=== PATIENT | male | born 1975 | race Two or more races ===

== ENCOUNTER 2024-08-10 18:25 | Emergency (ER) | payer MEDICAID ==
[~2024-08-10] VITALS: Ht 177.8 cm; Wt 115.7 kg
[2024-08-10] MEDS ORDERED: NEOMY/BACITRA/POLYMYXIN B OINT UD PACKET TP ONE (19:02)
[2024-08-10] MEDS: AMOXICILLIN-CLAVUL 500-125MG TABLET PO ONE (19:02)
[2024-08-10] MEDS ORDERED: AMOX-427 PO (19:02)
[2024-08-10] MEDS: NEOMY/BACITRA/POLYMYXIN B OINT UD PACKET TP ONE (19:03)
[2024-08-10] MEDS: ACETAMINOPHEN 500 MG TABLET PO ONE (19:03)
[2024-08-10 19:40] VITALS: BP 115/64; O2SAT 99
== END 2024-08-10 19:30 | disposition home or self-care (01) ==
LOC: ER 18:25
DX: S81.852A Open bite, left lower leg, initial encounter (principal); I48.91 Unspecified atrial fibrillation; Z79.01 Long term (current) use of anticoagulants; W54.0XXA Bitten by dog, initial encounter; Y93.89 Activity, other specified; Y92.89 Other specified places as the place of occurrence of the external cause; Y99.8 Other external cause status
CPT/HCPCS: A4606; A4663; A9150

== ENCOUNTER 2024-08-14 15:22 | Emergency (ER) | payer MEDICAID ==
[~2024-08-14] VITALS: Ht 177.8 cm; Wt 115.7 kg
[~2024-08-14 15:22] MED LIST: AMOX-427 PO
[2024-08-14] MEDS ORDERED: FLAS1KIT2 TP (16:05)
[2024-08-14] MEDS ORDERED: ACET1TAB23 PO (16:05)
[2024-08-14] MEDS ORDERED: FLAS1EAC2 TP (16:05)
[2024-08-14 16:16] VITALS: BP 155/97; O2SAT 97
== END 2024-08-14 16:17 | disposition home or self-care (01) ==
LOC: ER 15:22
DX: S80.12XA Contusion of left lower leg, initial encounter (principal); E11.9 Type 2 diabetes mellitus without complications; I10 Essential (primary) hypertension; I48.91 Unspecified atrial fibrillation; W54.0XXA Bitten by dog, initial encounter; Y93.89 Activity, other specified; Y92.89 Other specified places as the place of occurrence of the external cause; Y99.8 Other external cause status
CPT/HCPCS: A4606; A4663

== ENCOUNTER 2025-01-22 15:47 | Emergency (ER) | payer MEDICAID ==
[~2025-01-22] VITALS: Ht 177.8 cm; Wt 117.9 kg
[~2025-01-22 15:47] MED LIST changes: +ACET1TAB23 PO; +FLAS1EAC2 TP; +FLAS1KIT2 TP
[2025-01-22 16:17] LABS: *BILIRUBIN,URIN NEGATIVE (NEGATIVE); *BLOOD, URINE NEGATIVE (NEGATIVE); *CLARITY,URINE CLEAR (CLEAR); *COLOR,URINE YELLOW (YELLOW); *KETONES,URINE TRACE (NEGATIVE); *PROTEIN,URINE NEGATIVE (NEGATIVE); *UROBILINOGEN,URINE 0.2 E.U./dl (NORMAL); LEUKOCYTE ESTERASE ,URINE NEGATIVE (NEGATIVE); NITRITE, URINE NEGATIVE (NEGATIVE); UGLUCOSE 3+ (NEGATIVE)
[2025-01-22 16:23] LABS: SQUAMOUS EPITHELIAL CELL,UR FEW /HPF (NONE SEEN)
[2025-01-22] MEDS ORDERED: HYDROMORPHONE 1 MG/1 ML DISP.SYRIN ONE (17:24)
[2025-01-22] MEDS ORDERED: ONDANSETRON 4 MG/2 ML VIAL ONE (17:24)
[2025-01-22] MEDS: IV NORMAL SALINE 1000 ML BAG IV ONE (17:31)
[2025-01-22] MEDS: HYDROMORPHONE 1 MG/1 ML DISP.SYRIN IV ONE (17:31)
[2025-01-22] MEDS: ONDANSETRON 4 MG/2 ML VIAL IV ONE (17:31)
[2025-01-22 17:49] LABS: PLATELET COUNT (AUTO) 234 K/uL (152-348); RED BLOOD CELL COUNT(AUTO) 4.76 MIL/uL (4.06-5.63); RED CELL DISTRIBUTION WIDTH 14.3 % (12.1-16.2); WHITE BLOOD COUNT (AUTO) 6.4 K/uL (3.6-10.2)
[2025-01-22 17:54] LABS: CREATININE 0.6 mg/dL (0.6-1.3); SODIUM SERUM 142 mmol/L (136-145); UREA NITROGEN, BLOOD 13 mg/dL (7-18)
[2025-01-22 18:01] LABS: ASPARTATE AMINOTRANSFERASE 21 U/L (15-37); TOTAL PROTEIN, SERUM 7.9 g/dL (6.4-8.2)
[2025-01-22] MEDS ORDERED: OXYC-128 PO (18:15)
[2025-01-22] MEDS ORDERED: ONDA4TAB5 PO (18:15)
[2025-01-22 18:23] VITALS: BP 112/75
[2025-01-22 19:17] VITALS: BP 112/75; TEMP 98.7; O2SAT 98
== END 2025-01-22 19:18 | disposition home or self-care (01) ==
LOC: ER 15:47
DX: A08.4 Viral intestinal infection, unspecified (principal); E11.9 Type 2 diabetes mellitus without complications; R10.13 Epigastric pain; R11.2 Nausea with vomiting, unspecified; R19.7 Diarrhea, unspecified; I48.91 Unspecified atrial fibrillation; Z79.85 Long-term (current) use of injectable non-insulin antidiabetic drugs
CPT/HCPCS: 99285; 74176; 96374; 71045; 96361; 96375; 80076; 80048; 81001; 83690; 85025; 84484; 36415; 93005; 83605; J2405; J1171; J7040; A4606; A4663